=== PATIENT | male | born 1970 | race Caucasian/White ===

== ENCOUNTER 2017-11-04 15:50 | Emergency (ER) | payer MEDICARE, MEDICAID ==
[~2017-11-04] VITALS: Ht 5787.1 cm; Wt 90.9 kg
[~2017-11-04 15:50] MED LIST: DET2LAC PO; DOCU-261 PO; DULO20CA50 PO; ESOM2.5S PO; FLO0.4C PO; FURO-150 PO; NORCO10T PO; POTA10TA19 PO; SIMV80TA2 PO; [UNRECOGNIZED DRUG - CODE] PO; [UNRECOGNIZED DRUG - CODE] PO
[2017-11-04 16:03] VITALS: BP 178/102
[2017-11-04] MEDS ORDERED: DOXY100C43 PO (16:42)
== END 2017-11-04 16:56 | disposition home or self-care (01) ==
LOC: ER 15:51
DX: L02.01 Cutaneous abscess of face (principal); E11.9 Type 2 diabetes mellitus without complications; G89.29 Other chronic pain; Z88.2 Allergy status to sulfonamides; W57.XXXA Bitten or stung by nonvenomous insect and other nonvenomous arthropods, initial encounter; Y93.89 Activity, other specified; Y92.89 Other specified places as the place of occurrence of the external cause; Y99.8 Other external cause status
CPT/HCPCS: 99283; A6449

== ENCOUNTER 2018-06-24 19:25 | Emergency (ER) | payer MEDICARE, MEDICAID ==
[~2018-06-24] VITALS: Ht 175.3 cm; Wt 90.0 kg
[~2018-06-24 19:25] MED LIST changes: -FLO0.4C PO
[2018-06-24] MEDS ORDERED: LIDOcaine 1.5% w/epinephrine 1:200,000 5ml ampul IJ ONE (19:55)
[2018-06-24] MEDS ORDERED: DOXY100C43 PO (19:57)
[2018-06-24 20:44] VITALS: BP 181/97
== END 2018-06-24 20:50 | disposition home or self-care (01) ==
LOC: ER 19:26
DX: L02.811 Cutaneous abscess of head [any part, except face] (principal); E11.9 Type 2 diabetes mellitus without complications; G89.29 Other chronic pain; Z93.3 Colostomy status; Z88.2 Allergy status to sulfonamides; Z88.1 Allergy status to other antibiotic agents; Z79.2 Long term (current) use of antibiotics; Z79.899 Other long term (current) drug therapy
CPT/HCPCS: 10060; 99283; A6449; J3490

== ENCOUNTER 2019-01-09 12:18 | Inpatient (IN) | payer MEDICARE, MEDICAID | END 2019-01-11 13:45 | disposition home or self-care (01) | LOC: ER 12:18 → ED HOLD 17:12 → SUR 3N 20:09 | DX: J18.9 Pneumonia, unspecified organism (principal); K92.2 Gastrointestinal hemorrhage, unspecified; F11.23 Opioid dependence with withdrawal; E87.1 Hypo-osmolality and hyponatremia; G82.20 Paraplegia, unspecified; J69.0 Pneumonitis due to inhalation of food and vomit; F44.4 Conversion disorder with motor symptom or deficit; E11.9 Type 2 diabetes mellitus without complications; E03.9 Hypothyroidism, unspecified; G89.29 Other chronic pain; R74.0 Nonspecific elevation of levels of transaminase and lactic acid dehydrogenase [LDH]; Z93.3 Colostomy status ==

== ENCOUNTER 2019-12-08 11:38 | Emergency (ER) | payer MEDICARE, MEDICAID ==
[~2019-12-08] VITALS: Ht 175.3 cm; Wt 109.1 kg
[~2019-12-08 11:38] MED LIST changes: +BUPR1TAB48 SL; +CINN500C15 PO; +CLA PO; +CYCL-1 PO; -DET2LAC PO; -DOCU-261 PO; -ESOM2.5S PO; -FURO-150 PO; +INSU100V37 SQ; +INSU100V9 SQ; +LEVO100T9 PO; +LEVO500C3 PO; +METF-950 PO; +MILK150C2 PO; -NORCO10T PO; +OMEP40CA13 PO; +OXYB10TA30 PO; +OXYC10TA47 PO; -POTA10TA19 PO; +PREG100C PO; +SIMV-42 PO; -SIMV80TA2 PO; +TRAZ-251 PO; +UBID100C16 PO; -[UNRECOGNIZED DRUG - CODE] PO; -[UNRECOGNIZED DRUG - CODE] PO
[2019-12-08 11:48] VITALS: BP 134/86
--- NOTE | 2019-12-08 12:03 | NUR ---
2 days ago he was going past a book shelf when he cought his leg on it and heard a snap now his leg is swollen with 3+ EDMEA and he is not feeling well he is a parapligic and has no feeling in his lower extremitys
== END 2019-12-08 14:31 | disposition home or self-care (01) ==
LOC: ER 11:39
DX: S82.192A Other fracture of upper end of left tibia, initial encounter for closed fracture (principal); E11.9 Type 2 diabetes mellitus without complications; G89.29 Other chronic pain; F10.99 Alcohol use, unspecified with unspecified alcohol-induced disorder; Z98.890 Other specified postprocedural states; Z88.2 Allergy status to sulfonamides; Z88.8 Allergy status to other drugs, medicaments and biological substances; Z79.4 Long term (current) use of insulin; Z79.84 Long term (current) use of oral hypoglycemic drugs; Z79.899 Other long term (current) drug therapy; W22.8XXA Striking against or struck by other objects, initial encounter; Y93.89 Activity, other specified; Y92.098 Other place in other non-institutional residence as the place of occurrence of the external cause; Y99.8 Other external cause status; Y90.9 Presence of alcohol in blood, level not specified
CPT/HCPCS: 29515; 73590; 99283

== ENCOUNTER 2023-06-20 06:19 | Emergency (ER) | payer MEDICARE, MEDICAID ==
[~2023-06-20] VITALS: Ht 175.3 cm; Wt 110.0 kg
[~2023-06-20 06:19] MED LIST changes: +METF-1203 PO; -METF-950 PO; -OMEP40CA13 PO; +OMEP40CA21 PO
[2023-06-20] MEDS ORDERED: pantoprazole 40 MG vial IV ONE (08:35)
[2023-06-20] MEDS ORDERED: morphine 4 MG/ML inj SYRINge IV ONE ×2 (08:35→15:55)
[2023-06-20] MEDS ORDERED: ondansetron/PF 4mg/2ml inj IV ONE ×2 (08:35→15:55)
[2023-06-20] MEDS ORDERED: normal saline 1000ML IV soln IVB ONE (08:35)
[2023-06-20] MEDS ORDERED: pantoprazole 40MG/NS 100ML BAG 100 ML IV ONE (08:40)
[2023-06-20 10:32] LABS: BILIRUBIN,URINE SMALL (Neg); CLARITY,URINE SLIGHTLY CLOUDY (Clear); COLOR,URINE YELLOW (Yellow); GLUCOSE, URINE NEGATIVE (Neg); KETONES,URINE NEGATIVE (Neg); LEUKOCYTE ESTERASE ,URINE NEGATIVE (Neg); NITRITES, URINE NEGATIVE (Neg); OCCULT BLOOD,URINE NEGATIVE (Neg); PH,URINE 6.5 (4.8-8.0); PROTEIN,URINE 30 mg/dl (Neg)
[2023-06-20 10:39] LABS: ALANINE AMINOTRANSFERASE 15 U/L (12-78); ALBUMIN 2.2 G/DL (3.4-5.0); ALBUMIN/GLOBULIN RATIO 0.4 (1.1-1.5); ALKALINE PHOSPHATASE 148 IU/L (46-116); ANION GAP 10 (8-16); BILIRUBIN,TOTAL 1.1 MG/DL (0.1-1.0); BLOOD UREA NITROGEN 8 MG/DL (7-18); BUN/CREATININE RATIO 8.2 (10.0-20.0); CALCIUM 9.1 MG/DL (8.5-10.1); CHLORIDE 100 MMOL/L (99-107); CREATININE 0.98 MG/DL (0.60-1.10); ETHANOL < 10 MG/DL (<10); GLUCOSE 205 MG/DL (70-104); LIPASE < 50 U/L (73-393); SODIUM 135 MMOL/L (135-145); TOTAL CARBON DIOXIDE 25.2 MMOL/L (24-32); TOTAL PROTEIN 7.6 G/DL (6.4-8.2); eGFR 80 ML/MIN
[2023-06-20 10:43] LABS: ASPARTATE AMINO TRANSFERASE 38 U/L (10-37)
[2023-06-20 10:48] LABS: BASOPHILS # (AUTO) 0.1 X10'3 (0-0.2); BASOPHILS % (AUTO) 0.7 % (0-1); EOSINOPHILS % (AUTO) 0.4 % (0-6); HEMATOCRIT 40.9 % (42.0-52.0); HEMOGLOBIN 13.5 g/dl (14.0-17.9); LYMPHOCYTES # (AUTO) 0.7 X10'3 (1.1-4.8); LYMPHOCYTES % (AUTO) 7.9 % (21-51); MEAN CORPUSCULAR HEMOGLOBIN 25.8 PG (27.0-31.0); MEAN CORPUSCULAR VOLUME 78.4 FL (78-98); MEAN PLATELET VOLUME 8.5 FL (7.4-10.4); MONOCYTES # (AUTO) 1.1 X10'3 (0-0.9); MONOCYTES % (AUTO) 11.6 % (2-12); NEUTROPHILS # (AUTO) 7.4 X10'3 (1.8-7.7); NEUTROPHILS % (AUTO) 79.4 % (42-75); PLATELET COUNT 258 X10'3 (140-440); RED BLOOD COUNT 5.22 X10'6 (4.70-6.10); RED CELL DISTRIBUTION WIDTH 15.8 % (11.5-14.5); WHITE BLOOD COUNT 9.4 X10'3 (4.5-11.0)
[2023-06-20 10:55] LABS: APTT 28 SECONDS (22-32); INR 1.1 INR; PROTHROMBIN TIME 11.4 SECONDS (9.0-12.0)
[2023-06-20 11:02] LABS: UA COLLECTION TYPE FOLEY CATH
[2023-06-20 11:04] LABS: BACTERIA,URINE 1+ /HPF (Neg); RBC,URINE NONE SEEN /HPF (0-2); SQUAMOUS EPITHELIAL CELL,UR FEW /LPF (FEW)
[2023-06-20 11:05] LABS: HYALINE CASTS 0-3 /LPF (NEGATIVE)
[2023-06-20 11:19] LABS: URINE AMPHETAMINE SCREEN NEGATIVE (Neg); URINE BARBITUATE SCREEN NEGATIVE (Neg); URINE BENZODIAZEPINES SCREEN NEGATIVE (Neg); URINE CANNABINOID SCREEN NEGATIVE (Neg); URINE COCAINE SCREEN NEGATIVE (Neg); URINE METHADONE SCREEN NEGATIVE (Neg); URINE OPIATE SCREEN POSITIVE (Neg); URINE PHENCYCLIDINE SCREEN NEGATIVE (Neg)
[2023-06-20 12:48] VITALS: TEMP 97.7
[2023-06-20] MEDS ORDERED: CefTRIAXone/D5W-Rocephin 1gm 50 ML IV ONE (15:55)
[2023-06-20] MEDS ORDERED: CEPH-585 PO (15:58)
--- NOTE | 2023-06-20 16:24 | NUR ---
PT DECLINED ZOFRAN/MORPHINE ADMIN "IT TORE UP MY STOMACH LAST TIME"
[2023-06-20] MEDS ORDERED: albumin (human) 25% 100 ML IV solution IV ONE (19:25)
[2023-06-20 19:45] LABS: ALBUMIN,BODY FLUID 0.7 G/DL; AMYLASE,BODY FLUID 5 U/L; GLUCOSE,BODY FLUID 211 MG/DL; LDH,BODY FLUID 147 U/L; TOTAL PROTEIN,BODY FLUID 2.4 G/DL
[2023-06-20 20:07] LABS: BFAPPEAR CLEAR; BFSOURCE OTHER
[2023-06-20 20:08] LABS: BF RBC COUNT 18 /CU MM; BF WBC COUNT 56 /CU MM (0-1000); BFCOLOR COLORLESS; BFVOLUME 9 ML
[2023-06-20 20:11] LABS: LYMPHOCYTES,BODY FLUID 34 %; MONOCYTES,BODY FLUID 53 %; NEUTROPHILS,BODY FLUID 13 %
[2023-06-20] MEDS ORDERED: FURO40TA4 PO (20:24)
[2023-06-20] MEDS ORDERED: SPIR50TA5 PO (20:24)
[2023-06-20 21:42] VITALS: BP 156/78; PULSE 103; RESP 17; O2SAT 97
--- NOTE | 2023-06-20 21:43 | NUR ---
completed procedure 7 bottles of fluid removed from ABD. Pt tolerated procedure well. Pt pending dc called on her way. PIV dc'd dsg to site no active bleeding not at present time.
== END 2023-06-20 22:31 | disposition home or self-care (01) ==
LOC: ER 06:19
DX: R18.8 Other ascites (principal); E11.9 Type 2 diabetes mellitus without complications; Z88.8 Allergy status to other drugs, medicaments and biological substances; Z88.2 Allergy status to sulfonamides; Z79.899 Other long term (current) drug therapy; Z79.2 Long term (current) use of antibiotics
CPT/HCPCS: 36415; 49083; 76705; 80053; 80305; 80320; 81001; 82042; 82150; 82945; 83615; 83690; 84157; 85025; 85610; 85730; 87070; 87088; 89051; 96365; 96367; 96375; 99285; C9113; J0696; J2270; J2405; J7030; P9047; A4314